=== PATIENT | female | born 1985 | race Caucasian/White ===

== ENCOUNTER 2019-09-14 22:05 | Emergency (ER) | payer MEDICAID ==
[~2019-09-14] VITALS: Ht 154.9 cm; Wt 77.1 kg
--- NOTE | 2019-09-14 22:07 | NUR ---
BIB WHEELCHAIR TO ER BED 1
[2019-09-14 22:17] VITALS: BP 122/41
[2019-09-14 22:28] VITALS: BP 122/41
--- NOTE | 2019-09-14 22:53 | NUR ---
33 Y/O F BIB MOM C/O SEIZURE X 1 TODAY. PT DENIES FALLING. PT STATES THAT SHE WAS SITTING IN THE TUB WHEN SHE HAD THE SEIZURE. PER PT, LAST SEIZURE WAS 1 WEEK AGO AND STATES THAT SHE FELL AND SCRAPED HER KNEE. PT ADMITS TO DRUG USE, LAST HEROIN USE WAS 2 DAYS AGO AND LAST METH USE WAS 1 WEEK AGO. PER PT, SHE TAKES CODEINE AND VICODIN TO HELP STOP HER FROM DOING HEROIN. MOM AT BEDSIDE. SEIZURE PRECAUTIONS IN PLACE. BED IN LOWEST POSITION, SIDE RAIL UP X1. PT CONNECTED TO BEDSIDE MONITOR. MHX: SEIZURE, GALLBALDDER REMOVAL, DRUG USE NKA
--- NOTE | 2019-09-14 23:04 | NUR ---
Ryley george in [facility] - 09/14/19 at 2304 by MEDJJ PATIENT LEFT WITHOUT BEING SEEN BY DR. KNOX. NO FURTHER CARE PROVIDED FOR PATIENT.
--- NOTE | 2019-09-14 23:05 | NUR ---
PATIENT LEFT WITHOUT BEING SEEN BY DR. KNOX. NO FURTHER CARE PROVIDED FOR PATIENT.
== END 2019-09-14 23:05 | disposition left against medical advice (07) ==
LOC: MED 22:05
DX: R56.9 Unspecified convulsions (principal); Z53.21 Procedure and treatment not carried out due to patient leaving prior to being seen by health care provider

== ENCOUNTER 2020-10-01 15:45 | Emergency (ER) | payer MEDICAID ==
[~2020-10-01] VITALS: Ht 165.1 cm; Wt 71.7 kg
--- NOTE | 2020-10-01 15:48 | NUR ---
PT WAS PLACED INTO BED 8
[2020-10-01 15:51] VITALS: BP 112/60
[2020-10-01] MEDS ORDERED: levETIRAcetam 500 MG TAB PO ONE (15:55)
--- NOTE | 2020-10-01 15:57 | NUR ---
[place] [facility] AT BEDSIDE
--- NOTE | 2020-10-01 16:00 | NUR ---
34 Y/O F RAPHAEL FROM [facility], PT WAS IN SECURITY FOR LOSS PREVENTION AND STARTED STATING SHE WAS FEELING SOB AND HYPERVENTILATING. DENIES ANY PAIN AT THIS TIME. PT TOLD SECURITY THAT SHE WAS GOING TO HAVE A SEIZURE BECAUSE SHE HAS NOT TAKEN HER MEDICATIONS FOR TODAY. A&OX3 AND IS ABLE TO AMBULATE. DENIES N/V/D; SKIN IS PINK/WARM/DRY; LUNGS CLEAR BL; HR EVEN AND REGULAR; PT DENIES ANY FEVER, CP, OR COUGH AT THIS TIME; PATIENT STATES PAIN OF 0/10 AT THIS TIME; VSS; PATIENT POSITIONED FOR COMFORT; HOB ELEVATED; BEDRAILS UP X2; BED DOWN. ER MD MADE AWARE OF PT STATUS. PMH: SEIZURES NKA MED: KEPPRA BID 500MG
--- NOTE | 2020-10-01 16:11 | NUR ---
Pt W/C assisted to retroom.
--- NOTE | 2020-10-01 16:21 | NUR ---
Pt W/C assisted to ER bed 8.
[2020-10-01 16:42] VITALS: BP 112/60
--- NOTE | 2020-10-01 16:43 | NUR ---
Patient discharged with v/s stable. Written and verbal after care instructions given and explained. Patient verbalized understanding. Ambulatory with steady gait. All questions addressed prior to discharge. Advised to follow up with PMD.
== END 2020-10-01 16:43 | disposition home or self-care (01) ==
LOC: MED 15:45
DX: R06.4 Hyperventilation (principal); R56.9 Unspecified convulsions; F12.90 Cannabis use, unspecified, uncomplicated; F11.90 Opioid use, unspecified, uncomplicated; Z90.49 Acquired absence of other specified parts of digestive tract
CPT/HCPCS: 99283